=== PATIENT | male | born 1995 | race Caucasian/White ===

== ENCOUNTER 2022-10-31 19:23 | Observation (INO) ==
--- NOTE | 2022-10-31 19:47 | DR.ABDMALE ---
HPI Time seen Time Seen by Provider: 10/31/22 19:46 PCP Primary Care Physician: SUMAN CASE Complaint Chief Complaint:: PT AMBULATORY IN ED WITH C/O RIGHT SIDE PAIN. PT STATES HE WAS HERE APPROX A MONTH AGO WITH DIVERTICULITIS. IS SCHEDULED FOR COLONOSCOPY NEXT MONTH WITH DR. ELLIS. COVID-19 Coronavirus risk:travel/contact w/high risk person: No Has patient experienced Coronavirus symptoms: No Mode of arrival Mode of Arrival: Ambulatory Timing Onset of Chief Complaint: 10/31/22 Came on: Gradually Duration Duration: Intermittent Severity Severity: Moderate PMH PMH Past Medical History: Yes Past Medical History: Anxiety, GERD and Kidney Stones Past Medical History Comment: DIVERTICULITIS Past Surgical History: No Surgical History: No History Family History History of Family Medical Conditions: Yes Family Medical History: Diabetes Mellitus, Cancer, [place], Coronary Artery Disease, Heart Failure and Hypertension Social History Does patient currently use any type of tobacco product: Yes Have you used tobacco products in the last 12 months: Yes Type of Tobacco Use: Smokeless Does any household member use tobacco: No Alcohol Use: Occasionally Do you use any recreational Drugs:: No Lives With: Family Lives Where: Home Travel Risk Coronavirus risk:travel/contact w/high risk person: No Has patient experienced Coronavirus symptoms: No Infectious screening In the last 2 months have you had wt loss of >10#?: NO Have you had fever, night sweats or hemotysis?: No Have you traveled outside the country in the last 6 months?: No Isolation: Standard ROS Review of Systems Constitutional: No Symptoms Reported Eyes: No Symptoms Reported ENTM: No Symptoms Reported Respiratoy: No Symptoms Reported Cardiovascular: No Symptoms Reported Gastrointestinal/Abdominal: Abdominal Pain Genitourinary: No Symptoms Reported Neurological: No Symptoms Reported Musculoskeletal: No Symptoms Reported Integumentary: No Symptoms Reported Hematologic/Lymphatic: No Symptoms Reported Endocrine: No Symptoms Reported Psychiatric: No Symptoms Reported All Other Systems: Reviewed and Negative PE Vital Signs Vital Signs: Temp Pulse Resp BP Pulse Ox O2 Del Method 10/31/22 20:11 20 10/31/22 19:24 98.1 F 72 20 134/75 100 Room Air 09/18/22 19:58 149/79 General Limitations: No Limitations General Appearance: Alert and In No Apparent Distress Head Head Exam: Normal Inspection Eyes Eye exam: Normal Appearance ENT ENT Exam: Normal Exam Neck Neck Exam: Normal Inspection Chest Chest Inspection: Normal Inspection Respiratory Respiratory Exam: Normal Lung Sounds Bilat Cardiovascular Cardiovascular Exam: Regular Rate and Normal Rhythm Abdominal Exam Abdominal Exam: Normal Inspection and Normal Bowel Sounds Rectal Rectal Exam: Deferred Back Back Exam: Normal Inspection Extremeties Extremities Exam: Normal Inspection Exam: Male: Deferred Neurologic Neurological Exam: Alert and Oriented X3 Psychiatric Psychiatric Exam: Normal Affect and Normal Mood Skin Skin Exam: Warm, Dry, Intact and Normal Color COURSE Reevaluation 1st: Improved Consultation Consultation Comments: Accepted by Dr. Bonilla ROR Labs Reviewed Laboratory Results Reviewed?: Yes Laboratory: Specimen Type Clean catch urine 10/31/22 19:52 Urine Color Yellow (YELLOW) 10/31/22 19:52 Urine Appearance Clear (CLEAR) 10/31/22 19:52 Urine pH 5.0 (5.0 - 8.0) 10/31/22 19:52 Ur Specific [place] 1.020 (1.000-1.030) 10/31/22 19:52 Urine Protein 1+ (NEGATIVE) 10/31/22 19:52 Urine Glucose (UA) Negative (NEGATIVE) 10/31/22 19:52 Urine Ketones Negative (NEGATIVE) 10/31/22 19:52 Urine Blood Negative (NEGATIVE) 10/31/22 19:52 Urine Nitrite Negative (NEGATIVE) 10/31/22 19:52 Urine Bilirubin Negative (NEGATIVE) 10/31/22 19:52 Urine Urobilinogen Normal (NORMAL) 10/31/22 19:52 Ur Leukocyte Esterase Negative (NEGATIVE) 10/31/22 19:52 Urine RBC None seen /HPF (0-3) 10/31/22 19:52 Urine WBC None seen /HPF (0-5) 10/31/22 19:52 Ur Squamous Epith Cells Rare /HPF (NEGATIVE) 10/31/22 19:52 Urine Bacteria Trace /HPF (NEGATIVE) 10/31/22 19:52 Ur Culture Indicated? No/not indicated 10/31/22 19:52 XRAY XRAY Interpreted by: Radiologist Opioid Opioid Risk Tool Age (Valentin box if 16-45): Yes History of Preadolescent Sexual Abuse: No Total: 1 Total Score Risk Category: Low Risk Copyright: Kyle MUNGUIA predicting aberrant behaviors Discharge Plan Diagnosis Discharge Problem: Acute appendicitis Discharge Plan Patient Disposition: 01 HOME, SELF-CARE Condition: Stable Prescriptions: No Action paroxetine HCl 10 mg tablet 1 tab PO QPM omeprazole 40 mg capsule,delayed release(DR/EC) 1 cap PO QDAY Health Concerns: Post Hospitalization: new medications and changes needed to prevent readmission or further decline. Pt educated and given instructions on all concerns. Plan of Treatment: Continue with present treatment and follow up plan. Pt is to keep follow up appointment as instructed and take medications as ordered. Orders to Discharge Patient Discharge Orders: Discharge (Routine); Ordered 10/31/22 Ordered By: Sky [place] Transfer (Routine); Ordered 10/31/22 Ordered By: Sky [place] Follow ups/Referrals Follow ups/Referrals: SUMAN CASE [Primary Care Provider] - 3 days
[2022-10-31 19:58] LABS: BILIRUBIN,URINE NEGATIVE (NEGATIVE); BLOOD/HEMOGLOBIN,URINE NEGATIVE (NEGATIVE); GLUCOSE, URINE NEGATIVE (NEGATIVE); KETONES,URINE NEGATIVE (NEGATIVE); LEUKOCYTE ESTERASE ,URINE NEGATIVE (NEGATIVE); NITRITES,URINE NEGATIVE (NEGATIVE); PROTEIN,URINE 1+ (NEGATIVE); UROBILINOGEN,URINE NORMAL (NORMAL)
[2022-10-31] MEDS ORDERED: TORADOL 60 MG VIAL IM ONE (20:01)
[2022-10-31] MEDS ORDERED: TORADOL 60 MG VIAL ONE (20:05)
[2022-10-31 20:12] LABS: APPEARANCE,URINE CLEAR (CLEAR); BACTERIA,URINE TRACE /HPF (NEGATIVE); COLOR,URINE YELLOW (YELLOW); RBC,URINE NONE SEEN /HPF (0-3); SQUAMOUS EPITHELIAL CELL,UR RARE /HPF (NEGATIVE)
--- NOTE | 2022-10-31 20:29 | CT ---
ABDOMEN/PELVIS W/O CONHISTORY: Right-sided pain with history of diverticulitisComparison:September 18, 2022Technique:Multiple non contrast axial images of the abdomen and pelvis were obtained from the lung bases to the pubic symphysis. Oral contrast was given . Dose reduction techniques including Automated Exposure Control (AEC) and adjustment of mA and kV were utlized.Findings:The sensitivity for focal lesion detection within the solid abdominal viscera is diminished without the use of IV contrast.The heart is normal in size. There is no pericardial effusion. Lung bases are clear without focal consolidation, pleural effusion or pneumothorax.Liver and spleen are normal in size, contour. No focal lesions. No ductal dilitation. Gallbladder is present. No calcified gallstones or gallbladder wall thickening. The pancreas is unremarkable. Adrenal glands are normal. Kidneys are without hydronephrosis or nephrolithiasis.No bowel obstruction or inflammation. The appendix is dilated, fluid-filled and inflamed. No free air to suggest perforation. No abnormal appearing mesenteric or retroperitoneal lymph nodes. . No free fluid or fluid collections.The bladder is normal in appearance. Prostate unremarkable. No free fluid or abnormal pelvic lymph nodes.No aggressive osseous lesions.IMPRESSION:1.Acute appendicitis without perforation.Electronically signed by: MAURO MCDOWELL (Oct 31, 2022 20:27:45)
[2022-10-31] MEDS ORDERED: NS 1,000 ML IV 1,000 ML ONE (20:48)
[2022-10-31] MEDS ORDERED: ZOSYN VIAL 4.5 GRAMS IV ONE (20:48)
[2022-10-31] MEDS ORDERED: NS 100 ML IV 100 ML ONE (20:49)
[2022-10-31 21:04] LABS: BASOPHILS # (AUTO) 0.1 X10^3/uL (0.0-0.1); BASOPHILS % (AUTO) 1.2 % (0.2-1.0); EOSINOPHILS # (AUTO) 0.2 x10^3/uL (0.0-0.2); EOSINOPHILS % (AUTO) 2.5 % (0.9-2.9); HEMATOCRIT 42.7 % (42.0-54.0); HEMOGLOBIN 14.4 g/dL (13.5-18.0); LYMPHOCYTES # (AUTO) 3.1 X10^3/uL (1.3-2.9); MEAN CORPUSCULAR HEMOGLOBIN 27.7 pg (27.0-34.0); MEAN CORPUSCULAR HGB CONC 33.7 g/dL (33.0-35.0); MEAN CORPUSCULAR VOLUME 82.4 fL (80.0-100.0); MEAN PLATELET VOLUME 7.5 fL (7.4-11.0); MONOCYTES # (AUTO) 0.4 x10^3/uL (0.3-0.8); MONOCYTES % (AUTO) 4.5 % (0.0-13.0); NEUTROPHILS # (AUTO) 5.4 x10^3/uL (2.2-4.8); NEUTROPHILS % (AUTO) 58.8 % (42.0-75.0); RED BLOOD COUNT 5.19 X10^6/uL (4.7-6.0); RED CELL DISTRIBUTION WIDTH 13.9 % (11.6-16.5); WHITE BLOOD COUNT 9.2 X10^3/uL (3.6-10.0)
[2022-10-31] MEDS: ZOSYN VIAL 4.5 GRAMS 4.5 G in NS 100 ML IV 100 ML IV SCH ×2 (21:05→21:53)
[2022-10-31] MEDS: NS 1,000 ML IV 1,000 ML IV SCH (21:05)
[2022-10-31 21:15] LABS: ALANINE AMINOTRANSFERASE 33 Units/L (12-78); ALKALINE PHOSPHATASE 100 Units/L (46-116); ASPARTATE AMINO TRANSFERASE 18 Units/L (15-37); BLOOD UREA NITROGEN 12 mg/dL (7-18); CARBON DIOXIDE 31.7 mmol/L (21-32); CHLORIDE 98 mmol/L (98-107); COR NA(FOR HYPERGLY) 139 mmol/L (136-145); CREATININE 0.94 mg/dL (0.70-1.30); SODIUM 138 mmol/L (136-145); TOTAL PROTEIN 8.3 g/dL (6.4-8.2); eGFR NON BLACK RACES > 60 (>60)
[2022-10-31 22:02] VITALS: BMI 42.5
[2022-11-01] MEDS: NS 1,000 ML IV 1,000 ML IV SCH (05:16)
[2022-11-01] MEDS: ZOSYN VIAL 4.5 GRAMS 4.5 G in NS 100 ML IV 100 ML IV SCH (05:16)
--- NOTE | 2022-11-01 08:04 | DR.H&P ---
H&P History & Physical for Day of: H&P Date: 10/31/22 Chief Complaint Chief Complaint: Right lower quadrant pain. Allergies Allergies Allergy/AdvReac Type Severity Reaction Status Date / Time No Known Allergies Allergy Verified 09/18/22 23:09 History of Present Illness History of Present Illness: 27 yo male with onset of RLQ pain and right lower flank pain approximately 36 hours ago. Evaluated in the ER and CT scan consistent with acute appendicitis with no evidence of perforation. Past Medical History Past Medical History: Anxiety, GERD and Kidney Stones Additional Medical History: Sigmoid diverticulitis diagnosed one month ago and resolved with po antibiotics. Colonoscopy planned in the near future Past Surgical History Surgical History: No History Family History Family Medical History: Diabetes Mellitus, Cancer, [place], Coronary Artery Disease, Heart Failure and Hypertension Social History Does patient currently use any type of tobacco product: Yes Have you used tobacco products in the last 12 months: Yes Type of Tobacco Use: Smokeless Does any household member use tobacco: No Alcohol Use: Occasionally Drug Use: None Medications Home Medications: No Known Allergies Allergy (Verified 09/18/22 23:09) Labs Result Diagrams: 10/31/22 20:55 10/31/22 20:55 Labs: Laboratory WBC 9.2 X10^3/uL (3.6-10.0) 10/31/22 20:55 RBC 5.19 X10^6/uL (4.7-6.0) 10/31/22 20:55 Hgb 14.4 g/dL (13.5-18.0) 10/31/22 20:55 Hct 42.7 % (42.0-54.0) 10/31/22 20:55 MCV 82.4 fL (80.0-100.0) 10/31/22 20:55 MCH 27.7 pg (27.0-34.0) 10/31/22 20:55 MCHC 33.7 g/dL (33.0-35.0) 10/31/22 20:55 RDW 13.9 % (11.6-16.5) 10/31/22 20:55 Plt Count 294 X10^3/uL (150.0-450.0) 10/31/22 20:55 MPV 7.5 fL (7.4-11.0) 10/31/22 20:55 Neut % (Auto) 58.8 % (42.0-75.0) 10/31/22 20:55 Lymph % (Auto) 33.0 % (21.0-51.0) 10/31/22 20:55 [place] % (Auto) 4.5 % (0.0-13.0) 10/31/22 20:55 Eos % (Auto) 2.5 % (0.9-2.9) 10/31/22 20:55 Baso % (Auto) 1.2 % (0.2-1.0) H 10/31/22 20:55 Neut # (Auto) 5.4 x10^3/uL (2.2-4.8) H 10/31/22 20:55 Lymph # (Auto) 3.1 X10^3/uL (1.3-2.9) H 10/31/22 20:55 [place] # (Auto) 0.4 x10^3/uL (0.3-0.8) 10/31/22 20:55 Eos # (Auto) 0.2 x10^3/uL (0.0-0.2) 10/31/22 20:55 Baso # (Auto) 0.1 X10^3/uL (0.0-0.1) 10/31/22 20:55 Absolute Nucleated RBC 0.0 /100WBC 10/31/22 20:55 Sodium 138 mmol/L (136-145) 10/31/22 20:55 Corrected Sodium 139 mmol/L (136-145) 10/31/22 20:55 Potassium 3.3 mmol/L (3.5-5.1) L 10/31/22 20:55 Chloride 98 mmol/L (98-107) 10/31/22 20:55 Carbon Dioxide 31.7 mmol/L (21-32) 10/31/22 20:55 BUN 12 mg/dL (7-18) 10/31/22 20:55 Creatinine 0.94 mg/dL (0.70-1.30) 10/31/22 20:55 Est GFR (MDRD) Af Amer > 60 (>60) 10/31/22 20:55 Est GFR (MDRD) Non-Af > 60 (>60) 10/31/22 20:55 Glucose 128 mg/dL (65-99) H 10/31/22 20:55 Calcium 9.0 mg/dL (8.5-10.1) 10/31/22 20:55 Corrected Calcium TNP 10/31/22 20:55 Total Bilirubin 0.30 mg/dL (0.2-1.0) 10/31/22 20:55 AST 18 Units/L (15-37) 10/31/22 20:55 ALT 33 Units/L (12-78) 10/31/22 20:55 Alkaline Phosphatase 100 Units/L (46-116) 10/31/22 20:55 Total Protein 8.3 g/dL (6.4-8.2) H 10/31/22 20:55 Albumin 4.0 g/dL (3.4-5.0) 10/31/22 20:55 Globulin 4.3 g/dL (2.5-4.5) 10/31/22 20:55 Albumin/Globulin Ratio 0.9 Ratio (1.1-2.1) L 10/31/22 20:55 Specimen Type Clean catch urine 10/31/22 19:52 Urine Color Yellow (YELLOW) 10/31/22 19:52 Urine Appearance Clear (CLEAR) 10/31/22 19:52 Urine pH 5.0 (5.0 - 8.0) 10/31/22 19:52 Ur Specific [place] 1.020 (1.000-1.030) 10/31/22 19:52 Urine Protein 1+ (NEGATIVE) 10/31/22 19:52 Urine Glucose (UA) Negative (NEGATIVE) 10/31/22 19:52 Urine Ketones Negative (NEGATIVE) 10/31/22 19:52 Urine Blood Negative (NEGATIVE) 10/31/22 19:52 Urine Nitrite Negative (NEGATIVE) 10/31/22 19:52 Urine Bilirubin Negative (NEGATIVE) 10/31/22 19:52 Urine Urobilinogen Normal (NORMAL) 10/31/22 19:52 Ur Leukocyte Esterase Negative (NEGATIVE) 10/31/22 19:52 Urine RBC None seen /HPF (0-3) 10/31/22 19:52 Urine WBC None seen /HPF (0-5) 10/31/22 19:52 Ur Squamous Epith Cells Rare /HPF (NEGATIVE) 10/31/22 19:52 Urine Bacteria Trace /HPF (NEGATIVE) 10/31/22 19:52 Ur Culture Indicated? No/not indicated 10/31/22 19:52 Review of Systems Constitutional: See HPI Eyes: No Symptoms Reported ENT: No Symptoms Reported Respiratory: No Symptoms Reported Cardiovascular: No Symptoms Reported Gastrointestinal: See HPI Genitourinary: No Symptoms Reported Musculoskeletal: No Symptoms Reported Skin: No Symptoms Reported Neurological: No Symptoms Reported Physical Exam Vital Signs: Temperature 98.5 F Pulse Rate [Brachial] 65 Pulse Rate 72 Respiratory Rate 16 Blood Pressure [Left Arm] 158/98 Blood Pressure 134/75 O2 Sat by Pulse Oximetry 98 Oriented: Normal, Time, Person and Place Eyes: Normal Ear: Normal Nose: Normal Throat: Normal Respiratory: Clear Throughout Cardiovascular: Normal : Normal Auscultation: Bowel Sounds: Normal Palpation: Normal Tenderness: RLQ (+ rebound) Skin: Normal Musculoskeletal: Normal Psychiatric: Normal Mood Description: Calm Affect: Normal Speech Pattern: Clear Assessment/Plan (1) Acute appendicitis: Status: Acute Plan: Start IV antibiotics. Plan for laparoscopic appendectomy AM of . Risks and benefits discussed and recorded on permit. He and his agree to proceed.
[2022-11-01] MEDS ORDERED: BENADRYL INJ 50 MG VIAL IVP PRN (08:46)
[2022-11-01] MEDS ORDERED: ZOFRAN INJ 4 MG VIAL IVP PRN (08:46)
[2022-11-01] MEDS ORDERED: DILAUDID INJ IVP PRN (08:46)
[2022-11-01] MEDS ORDERED: BARHEMSYS INJ IVP PRN (08:46)
[2022-11-01] MEDS ORDERED: REGLAN INJ 10 MG VIAL IVP PRN (08:46)
[2022-11-01] MEDS ORDERED: BRIDION ONE (08:50)
[2022-11-01] MEDS ORDERED: MAGNESIUM SULFATE 50% INJ VIAL ONE (08:50)
[2022-11-01] MEDS ORDERED: DIPRIVAN VIAL 20 ML ONE (08:50)
[2022-11-01] MEDS ORDERED: PRECEDEX INJ VIAL IVP ONE (08:50)
[2022-11-01] MEDS ORDERED: ZOFRAN INJ 4 MG VIAL ONE (08:51)
[2022-11-01] MEDS ORDERED: DECADRON INJ ONE (08:51)
[2022-11-01] MEDS ORDERED: PEPCID 20 MG VIAL ONE (08:51)
[2022-11-01] MEDS ORDERED: ZEMURON 100 MG VIAL ONE (08:51)
[2022-11-01] MEDS ORDERED: FENTANYL VIAL INJ 250 mcg ONE (08:54)
[2022-11-01] MEDS ORDERED: NS 100 ML IV 100 ML ONE (09:13)
[2022-11-01] MEDS ORDERED: LR 1,000 ML IV 1,000 ML IV ONE (09:13)
[2022-11-01] MEDS ORDERED: ANCEF VIAL 1 GRAM ONE (09:13)
[2022-11-01] MEDS ORDERED: BACTROBAN TOPICAL OINT ONE (09:45)
[2022-11-01] MEDS ORDERED: SUPRANE ONE (09:52)
[2022-11-01] MEDS ORDERED: MARCAINE/EPINEPHRINE ONE (10:15)
[2022-11-01] MEDS ORDERED: ROBINUL ONE (10:20)
[2022-11-01] MEDS ORDERED: NORMODYNE INJ 20 MG VIAL ONE (10:30)
[2022-11-01] MEDS ORDERED: PERCOCET TAB 5/325 MG PO PRN (10:50)
--- NOTE | 2022-11-01 10:54 | OR.IMMED ---
IMMEDIATE POST-OP NOTE Immediate Post-Op Note Pre-Op Diagnosis: acute appendicitis Post-Op Diagnosis: same Procedure: laparoscopic cholecystectomy Description of Procedure: see opertive summary Surgeon/Utilization Management Manager: Irene Findings: acute appendicitis Estimated Blood Loss: minimal Complications: none Progress Notes: Return to floor . If apin controlled and taking diet will discharge home later today.
[2022-11-01 14:45] VITALS: BP 149/87
--- NOTE | 2022-11-01 14:54 | W.DIS.FURT ---
Summary of Discharge Discharge Summary of Date Date of Exam: 11/01/22 Admission Date Date of Admission: 10/31/22 Admission Diagnosis Patient Problems (Updated 10/31/22 @ 20:53 by Sky [place]) Acute appendicitis (Acute) K35.80 Hospital Course: This 27 year old male presented with approximately two-day history of right lower quadrant pain and tenderness. CT scan was performed in the emergency room and was consistent with acute appendicitis. He was placed IV antibiotics overnight for approximately 8 hours and underwent uncomplicated laparoscopic appendectomy. Appendix was moderately inflamed. There was no perforation . He will be discharged home on Cipro 500 mg BID and Percocet 5 mg tablets, one every six hours PRN pain .He will follow up with me in one week. Vital Signs: Vital Signs (72 hours) 10/31/22 19:24 10/31/22 20:11 10/31/22 20:41 Temperature 98.1 F Pulse Rate 72 Pulse Rate [Brachial] Respiratory Rate 20 20 20 Blood Pressure 134/75 Blood Pressure [Left Arm] O2 Sat by Pulse Oximetry 100 Oxygen Delivery Method Room Air 10/31/22 21:37 10/31/22 21:40 10/31/22 21:40 Temperature 98.5 F Pulse Rate Pulse Rate [Brachial] 65 Respiratory Rate 20 16 Blood Pressure Blood Pressure [Left Arm] 158/98 O2 Sat by Pulse Oximetry 98 Oxygen Delivery Method Room Air Room Air 11/01/22 00:00 11/01/22 05:10 11/01/22 07:20 Temperature 98.8 F 98.0 F Pulse Rate Pulse Rate [Brachial] 61 51 L Respiratory Rate 20 20 Blood Pressure Blood Pressure [Left Arm] 129/75 119/72 O2 Sat by Pulse Oximetry 95 97 Oxygen Delivery Method Room Air Room Air Room Air 11/01/22 08:00 11/01/22 09:10 11/01/22 10:53 Temperature 98.5 F 97.9 F 97.0 F L Pulse Rate 57 L 88 Pulse Rate [Brachial] 46 L Respiratory Rate 18 17 18 Blood Pressure 150/101 129/79 Blood Pressure [Left Arm] 140/76 O2 Sat by Pulse Oximetry 98 97 100 Oxygen Delivery Method Room Air Room Air Aerosol Face Tent 11/01/22 11:13 11/01/22 11:18 11/01/22 11:22 Temperature Pulse Rate 83 82 63 Pulse Rate [Brachial] Respiratory Rate 18 18 18 Blood Pressure 127/22 119/66 115/63 Blood Pressure [Left Arm] O2 Sat by Pulse Oximetry 98 98 98 Oxygen Delivery Method Nasal Cannula Nasal Cannula Nasal Cannula 11/01/22 10:58 11/01/22 11:03 11/01/22 11:08 Temperature Pulse Rate 87 73 82 Pulse Rate [Brachial] Respiratory Rate 18 18 18 Blood Pressure 131/86 124/71 127/71 Blood Pressure [Left Arm] O2 Sat by Pulse Oximetry 100 100 97 Oxygen Delivery Method Aerosol Face Tent Aerosol Face Tent Room Air 11/01/22 11:30 11/01/22 11:45 11/01/22 12:00 Temperature 97.0 F L Pulse Rate Pulse Rate [Brachial] 48 L 52 L 55 L Respiratory Rate 16 18 18 Blood Pressure Blood Pressure [Left Arm] 114/60 116/62 121/71 O2 Sat by Pulse Oximetry 98 99 99 Oxygen Delivery Method 11/01/22 12:15 11/01/22 12:30 11/01/22 13:30 Temperature 98.0 F Pulse Rate Pulse Rate [Brachial] 47 L 52 L 49 L Respiratory Rate 18 18 18 Blood Pressure Blood Pressure [Left Arm] 114/69 114/77 116/72 O2 Sat by Pulse Oximetry 99 99 96 Oxygen Delivery Method 11/01/22 14:30 Temperature 97.6 F Pulse Rate Pulse Rate [Brachial] 54 L Respiratory Rate 18 Blood Pressure Blood Pressure [Left Arm] 149/87 O2 Sat by Pulse Oximetry 95 Oxygen Delivery Method Labs: Laboratory Last Values WBC 9.2 X10^3/uL (3.6-10.0) 10/31/22 20:55 RBC 5.19 X10^6/uL (4.7-6.0) 10/31/22 20:55 Hgb 14.4 g/dL (13.5-18.0) 10/31/22 20:55 Hct 42.7 % (42.0-54.0) 10/31/22 20:55 MCV 82.4 fL (80.0-100.0) 10/31/22 20:55 MCH 27.7 pg (27.0-34.0) 10/31/22 20:55 MCHC 33.7 g/dL (33.0-35.0) 10/31/22 20:55 RDW 13.9 % (11.6-16.5) 10/31/22 20:55 Plt Count 294 X10^3/uL (150.0-450.0) 10/31/22 20:55 MPV 7.5 fL (7.4-11.0) 10/31/22 20:55 Neut % (Auto) 58.8 % (42.0-75.0) 10/31/22 20:55 Lymph % (Auto) 33.0 % (21.0-51.0) 10/31/22 20:55 [place] % (Auto) 4.5 % (0.0-13.0) 10/31/22 20:55 Eos % (Auto) 2.5 % (0.9-2.9) 10/31/22 20:55 Baso % (Auto) 1.2 % (0.2-1.0) H 10/31/22 20:55 Neut # (Auto) 5.4 x10^3/uL (2.2-4.8) H 10/31/22 20:55 Lymph # (Auto) 3.1 X10^3/uL (1.3-2.9) H 10/31/22 20:55 [place] # (Auto) 0.4 x10^3/uL (0.3-0.8) 10/31/22 20:55 Eos # (Auto) 0.2 x10^3/uL (0.0-0.2) 10/31/22 20:55 Baso # (Auto) 0.1 X10^3/uL (0.0-0.1) 10/31/22 20:55 Absolute Nucleated RBC 0.0 /100WBC 10/31/22 20:55 Sodium 138 mmol/L (136-145) 10/31/22 20:55 Corrected Sodium 139 mmol/L (136-145) 10/31/22 20:55 Potassium 3.3 mmol/L (3.5-5.1) L 10/31/22 20:55 Chloride 98 mmol/L (98-107) 10/31/22 20:55 Carbon Dioxide 31.7 mmol/L (21-32) 10/31/22 20:55 BUN 12 mg/dL (7-18) 10/31/22 20:55 Creatinine 0.94 mg/dL (0.70-1.30) 10/31/22 20:55 Est GFR (MDRD) Af Amer > 60 (>60) 10/31/22 20:55 Est GFR (MDRD) Non-Af > 60 (>60) 10/31/22 20:55 Glucose 128 mg/dL (65-99) H 10/31/22 20:55 Calcium 9.0 mg/dL (8.5-10.1) 10/31/22 20:55 Corrected Calcium TNP 10/31/22 20:55 Total Bilirubin 0.30 mg/dL (0.2-1.0) 10/31/22 20:55 AST 18 Units/L (15-37) 10/31/22 20:55 ALT 33 Units/L (12-78) 10/31/22 20:55 Alkaline Phosphatase 100 Units/L (46-116) 10/31/22 20:55 Total Protein 8.3 g/dL (6.4-8.2) H 10/31/22 20:55 Albumin 4.0 g/dL (3.4-5.0) 10/31/22 20:55 Globulin 4.3 g/dL (2.5-4.5) 10/31/22 20:55 Albumin/Globulin Ratio 0.9 Ratio (1.1-2.1) L 10/31/22 20:55 Specimen Type Clean catch urine 10/31/22 19:52 Urine Color Yellow (YELLOW) 10/31/22 19:52 Urine Appearance Clear (CLEAR) 10/31/22 19:52 Urine pH 5.0 (5.0 - 8.0) 10/31/22 19:52 Ur Specific [place] 1.020 (1.000-1.030) 10/31/22 19:52 Urine Protein 1+ (NEGATIVE) 10/31/22 19:52 Urine Glucose (UA) Negative (NEGATIVE) 10/31/22 19:52 Urine Ketones Negative (NEGATIVE) 10/31/22 19:52 Urine Blood Negative (NEGATIVE) 10/31/22 19:52 Urine Nitrite Negative (NEGATIVE) 10/31/22 19:52 Urine Bilirubin Negative (NEGATIVE) 10/31/22 19:52 Urine Urobilinogen Normal (NORMAL) 10/31/22 19:52 Ur Leukocyte Esterase Negative (NEGATIVE) 10/31/22 19:52 Urine RBC None seen /HPF (0-3) 10/31/22 19:52 Urine WBC None seen /HPF (0-5) 10/31/22 19:52 Ur Squamous Epith Cells Rare /HPF (NEGATIVE) 10/31/22 19:52 Urine Bacteria Trace /HPF (NEGATIVE) 10/31/22 19:52 Ur Culture Indicated? No/not indicated 10/31/22 19:52 Reason For Visit: APPENDICITIS Discharge Date Discharge Date: 11/01/22 Discharge Diagnosis All Active Problems (Updated 10/31/22 @ 20:53 by Sky [place]) Renal colic (Acute) Microscopic hematuria (Acute) Diverticulitis of sigmoid colon (Acute) Acute appendicitis (Acute) Plan of Treatment: Continue with present treatment and follow up plan. Pt is to keep follow up appointment as instructed and take medications as ordered. Discharge Medications Discharge Medications: No Known Allergies Allergy (Verified 09/18/22 23:09) New Prescriptions ciprofloxacin HCl 500 mg tablet (Cipro) 500 mg PO BID #10 tabs 11/01/22 [Rx] oxycodone-acetaminophen 5 mg-325 mg tablet (Percocet) 1 tab PO Q6H PRN #20 tabs 11/01/22 [Rx] Discharge Disposition Assessment: see hospital course above . Discharge Plan Discharge Plan Hospital Course: This 27 year old male presented with approximately two-day history of right lower quadrant pain and tenderness. CT scan was performed in the emergency room and was consistent with acute appendicitis. He was placed IV antibiotics overnight for approximately 8 hours and underwent uncomplicated laparoscopic appendectomy. Appendix was moderately inflamed. There was no perforation . He will be discharged home on Cipro 500 mg BID and Percocet 5 mg tablets, one every six hours PRN pain .He will follow up with me in one week. Patient Disposition: HOME, SELF-CARE Condition: Stable Health Concerns: Post Hospitalization: new medications and changes needed to prevent readmission or further decline. Pt educated and given instructions on all concerns. Care Plan Goals: return to usual activity Plan of Treatment: Continue with present treatment and follow up plan. Pt is to keep follow up appointment as instructed and take medications as ordered. Assessment: see hospital course above . Prescription drug monitoring program results: PDMP reviewed and no concerns identified Prescriptions: New ciprofloxacin HCl [Cipro] 500 mg tablet 500 mg PO BID Qty: 10 0RF oxycodone-acetaminophen [Percocet] 5-325 mg tablet 1 tab PO Q6H MDD 4 PRNQty: 20 0RF Continued paroxetine HCl 10 mg tablet 1 tab PO QPM omeprazole 40 mg capsule,delayed release(DR/EC) 1 cap PO QDAY Orders to Discharge Patient Discharge Orders: Discharge (Routine); Ordered 11/01/22 Ordered By: Mic Bonilla Follow ups/Referrals Follow ups/Referrals: SUMAN CASE [Primary Care Provider] - 3 days Instructions Instructions: Laparoscopic Appendectomy, Adult, Care After, [id number] Stand Alone Forms: Excuse From Work or School
[2022-11-01] MEDS ORDERED: CIPRO TAB 500 MG PO SCH (21:00)
--- NOTE | 2022-11-05 19:20 | DR.OPNOTE ---
OP NOTE Pre-Op Diagnosis: early acute appendicitis Post-Op Diagnosis: same Procedure Date Date Of Procedure: 11/01/22 Procedure: PROCEDURE : LAPAROSCOPIC APPENDECTOMY NARRATIVE : The patient was taken to the operative suite and placed in the Supine position. Entire abdomen was prepped and draped in sterile fashion and general endotracheal anesthesia induced. Time out for the procedure obtained. 5 mm incision was made lateral to the left rectus sheath and a 5 mm Optical trocar used to enter the abdominal cavity. The abdomen insufflated to 15 mm of mercury with carbon dioxide and under direct vision a 5 mm trocar placed above the pubic tubercles in the midline and a 12 mm trocar placed in the left lower quadrant. The appendix was easily identified and was moderately inflamed with no evidence of perforation. The base of the appendix and it's mesentery divided with a MICHELLE stapler. The appendix placed in a specimen bag and brought out through the left lower quadrant trocar site. Abdomen was irrigated and suctioned free. There was some bleeding from the staple line which was stopped with electrocautery. All trocars removed . All incisions closed with 3-0 Vicryl interrupted subcutaneous sutures and skin closed with steri strips. A total of 20 cc's of 0.5 % Marcaine was distributed between the three laparoscopic incisions. Patient extubated and taken to the PACU in good condition. Type of Anesthesia: General Anesthetic w/ETT Anesthesia Comment: Local anesthesia 0.5 % Marcaine in the 3 laparoscopic incisions about 20 cc total. Findings: Early acute appendicitis Type of Fluids Used:: Lactated Ringers Total Amount of Fluid Infused:: 500 cc EBL: minimal Complications:: none Needle/Sponge Count:: correct Disposition/Condition: Pt. tolerated procedure without difficulty. Extubated in the OR and taken to PACU in stable condition.
== END 2022-11-01 16:05 | disposition home or self-care (01) ==
LOC: MED/SURG 19:23 → ER 19:23 → MED/SURG 21:35
PROVIDERS: ADMIT Surgery; ATTEND Surgery
PROC: APPYLAP (ICD-10-PCS; 2022-11-01 09:15)
DX: K35.890 Other acute appendicitis without perforation or gangrene; K35.80 Unspecified acute appendicitis; R10.31 Right lower quadrant pain